=== PATIENT | male | born 1980 | race Caucasian/White ===

== ENCOUNTER 2018-01-06 20:09 | Emergency (ER) | payer MEDICAID ==
[~2018-01-06] VITALS: Ht 175.3 cm; Wt 102.6 kg
[2018-01-06 20:27] VITALS: BP 153/82
== END 2018-01-06 20:30 | disposition home or self-care (01) ==
LOC: ER 20:09
DX: Z02.89 Encounter for other administrative examinations (principal); F17.200 Nicotine dependence, unspecified, uncomplicated; F15.90 Other stimulant use, unspecified, uncomplicated; Z56.0 Unemployment, unspecified
CPT/HCPCS: 99281

== ENCOUNTER 2023-05-11 09:47 | Emergency (ER) | payer MEDICAID ==
[~2023-05-11] VITALS: Ht 175.3 cm; Wt 100.0 kg
[2023-05-11 09:53] VITALS: BP 178/100
--- NOTE | 2023-05-11 10:42 | NUR ---
Spoke to pharmacy unable to pull meds. Pharmacy will deliver meds.
[2023-05-11] MEDS ORDERED: PRED20TA PO (10:44)
[2023-05-11] MEDS ORDERED: triamcinolone acetonide 40mg/ml inj IM ONE ×2 (10:45→10:55)
--- NOTE | 2023-05-11 10:58 | NUR ---
Called pharmacy again medication still has not been brought to unit.
== END 2023-05-11 11:17 | disposition home or self-care (01) ==
LOC: ER 09:47
DX: L23.7 Allergic contact dermatitis due to plants, except food (principal); F15.20 Other stimulant dependence, uncomplicated; Z56.0 Unemployment, unspecified
CPT/HCPCS: 96372; 99283; J3301